=== PATIENT | male | born 1985 | race American Indian/Alaskan Native ===

== ENCOUNTER 2019-01-31 18:33 | Emergency (ER) | payer SELFPAY ==
--- NOTE | 2019-01-31 19:31 | Event Note ---
ED Screening Note Date of service: 01/31/19 Time: 19:27 ED Screening Note: This is a 33 y.o. M. that presents to the ER with RLE pain for several weeks. PMH morbidly obese, lymphedema to RLE No PCP Denies injury This initial assessment/diagnostic orders/clinical plan/treatment(s) is/are sub ject to change based on patients health status, clinical progression and re- assessment by fellow clinical providers in the ED. Further treatment and workup at subsequent clinical providers discretion. Patient/guardian urged not to elope from the ED as their condition may be serious if not clinically assessed and managed. Initial orders include:
[2019-01-31 20:58] LABS: Basophils % (Auto) 0.5 % (0.0-1.8); Eosinophils # (Auto) 0.3 K/mm3 (0.0-0.4); Eosinophils % (Auto) 3.1 % (0.0-4.3); Hematocrit 34.7 % (35.5-45.6); Hemoglobin 11.2 gm/dl (11.8-15.2); Lymphocytes % (Auto) 23.1 % (13.4-35.0); Mean Corpuscular HGB Conc 32 % (32-34); Mean Corpuscular Volume 73 fl (84-94); Monocytes # (Auto) 0.7 K/mm3 (0.0-0.8); Monocytes % (Auto) 8.3 % (0.0-7.3); Platelet Count 324 K/mm3 (140-440); Red Blood Count 4.74 M/mm3 (3.65-5.03); Red Cell Distribution Width 16.7 % (13.2-15.2)
[2019-01-31 21:08] LABS: INR 1.09 (0.87-1.13); Partial Thromboplastin Time 33.8 Sec. (24.2-36.6)
--- NOTE | 2019-01-31 21:22 | XRay Report ---
CHEST PA AND LATERAL VIEWS INDICATION: DYSPNEA. COMPARISON: None. FINDINGS: Support devices: None. Heart: Within normal limits. Lungs/Pleura: No acute pulmonary or pleural findings. IMPRESSION: 1. No significant abnormality. Signer Name: Matias Loyd MD Signed: 01/31/2019 9:18 PM Workstation Name: [id number]
[2019-01-31 21:24] LABS: Alanine Aminotransferase 12 units/L (7-56); Albumin 3.7 g/dL (3.9-5); BUN/Creatinine Ratio 9; Blood Urea Nitrogen 7 mg/dL (9-20); Hemolysis Index 2
[2019-01-31] MEDS ORDERED: LASIX PO ONE (23:35)
--- NOTE | 2019-02-01 00:26 | Emergency Department Report ---
ED Extremity Problem HPI - General Chief complaint: Extremity Injury, Lower Stated complaint: LEG PAIN Time Seen by Provider: 01/31/19 19:26 Source: patient Mode of arrival: Ambulatory Limitations: No Limitations - History of Present Illness Initial comments: Patient is a 33-year-old -[place] male with a history of chronic morbid obesity and chronic lower extremity lymphedema who presents to the ED with bilateral lower leg pain and worsening lymphedematous swelling on the right lower leg for the last 2 weeks. Patient denies shortness of breath, chest pain, traumatic injury, dizziness, lightheadedness, headache, abdominal pain, hematuria, dysuria, urinary frequency and urgency, dyspnea on exertion, fever, chills, traumatic injury, cough or change in vision. Patient states that he has not been evaluated by any medication physician for his chronic lymphedema. MD Complaint: extremity pain (bilateral lower leg pain and swelling; baseline chronic lymphedema), extremity swelling (Bilateral chronic baseline lower leg lymphedema) -: Gradual, week(s) (2) Location: bilateral lower extremity (lower leg) -: Yes myalgia, Yes arthralgia, No fever, No associated dyspnea, No associated chest pain Radiation: none Severity scale (0 -10): 3 Quality: aching, sharp, constant Consistency: constant Improves with: nothing, rest Worsens with: weight bearing, walking, palpation Associated Symptoms: denies other symptoms, arthralgias. denies: chest pain, shortness of breath, fever, myalgias, rash - Related Data Previous Rx's Medication Instructions Recorded Last Taken Type Furosemide [Lasix] 20 mg PO QDAY #30 tablet 02/01/19 Unknown Rx Naproxen [Naprosyn] 500 mg PO Q12H #20 tablet 02/01/19 Unknown Rx tiZANidine [Zanaflex 4mg TAB] 4 mg PO Q8H PRN #15 tablet 02/01/19 Unknown Rx traMADol [Ultram] 50 mg PO Q6HR PRN #15 tablet 02/01/19 Unknown Rx Allergies Allergy/AdvReac Type Severity Reaction Status Date / Time No Known Allergies Allergy Unverified 01/31/19 23:49 ED Review of Systems ROS: Stated complaint: LEG PAIN Other details as noted in HPI Constitutional: denies: chills, fever Eyes: denies: eye pain, eye discharge, vision change ENT: denies: ear pain, throat pain Respiratory: denies: cough, shortness of breath, wheezing Cardiovascular: denies: chest pain, palpitations Endocrine: no symptoms reported Gastrointestinal: denies: abdominal pain, nausea, diarrhea Genitourinary: denies: urgency, dysuria Musculoskeletal: arthralgia (chronic lower leg pain due to chronic lymphedema). denies: back pain, joint swelling Skin: denies: rash, lesions, change in color, change in hair/nails Neurological: denies: headache, weakness, paresthesias, abnormal gait Psychiatric: denies: anxiety, depression, auditory hallucinations, visual hallucinations, suicidal thoughts Hematological/Lymphatic: denies: easy bleeding, easy bruising ED Past Medical Hx - Past Medical History Previous Medical History?: Yes Additional medical history: Morbid Obesity, Lymphadema - Social History Smoking Status: Current Every Day Smoker Substance Use Type: Marijuana - Medications Home Medications: Home Medications Medication Instructions Recorded Confirmed Last Taken Type Furosemide [Lasix] 20 mg PO QDAY #30 tablet 02/01/19 Unknown Rx Naproxen [Naprosyn] 500 mg PO Q12H #20 tablet 02/01/19 Unknown Rx tiZANidine [Zanaflex 4mg TAB] 4 mg PO Q8H PRN #15 tablet 02/01/19 Unknown Rx traMADol [Ultram] 50 mg PO Q6HR PRN #15 tablet 02/01/19 Unknown Rx ED Physical Exam - General Limitations: No Limitations General appearance: alert, in no apparent distress, other (morbidly obese) - Head Head exam: Present: atraumatic, normocephalic, normal inspection - Eye Eye exam: Present: normal appearance, PERRL, EOMI. Absent: scleral icterus, c onjunctival injection, nystagmus, periorbital swelling, periorbital tenderness, other Pupils: Present: normal accommodation - ENT ENT exam: Present: normal exam, normal orophraynx, mucous membranes moist, TM's normal bilaterally, normal external ear exam - Neck Neck exam: Present: normal inspection, full ROM. Absent: tenderness, lymphadenopathy - Respiratory Respiratory exam: Present: normal lung sounds bilaterally. Absent: respiratory distress, wheezes, rales, rhonchi, chest wall tenderness, accessory muscle use, decreased breath sounds - Cardiovascular Cardiovascular Exam: Present: regular rate, normal rhythm, normal heart sounds. Absent: systolic murmur, diastolic murmur, rubs, gallop - GI/Abdominal GI/Abdominal exam: Present: soft, normal bowel sounds. Absent: distended, tenderness, guarding, rebound, hypoactive bowel sounds, organomegaly, mass - Rectal Rectal exam: Present: deferred - Extremities Exam Extremities exam: Present: normal inspection, full ROM, tenderness (Bilateral lower leg tenderness diffusely with chronic lymphedematous swelling), normal capillary refill, pedal edema (chronci baseline lymphedema), joint swelling (chronic lymphedematous lower legs). Absent: calf tenderness - Back Exam Back exam: Present: normal inspection, full ROM. Absent: tenderness, CVA tenderness (R), CVA tenderness (L), muscle spasm, paraspinal tenderness, vertebral tenderness - Neurological Exam Neurological exam: Present: alert, oriented X3, CN II-XII intact, normal gait, reflexes normal - Psychiatric Psychiatric exam: Present: normal affect, normal mood - Skin Skin exam: Present: warm, dry, intact, normal color. Absent: rash ED Course Vital Signs 01/31/19 02/01/19 19:27 00:57 Temperature 99.3 F Pulse Rate 91 H 65 Respiratory 18 18 Rate Blood Pressure 169/83 Blood Pressure 109/54 [Left] O2 Sat by Pulse 98 100 Oximetry - Reevaluation(s) Reevaluation #1: 02/01/19 00:27 This is a 33-year-old morbidly obese male with a history of chronic baseline bilateral lower extremity lymphedema present to the ED with worsening lower extremity pain due to worsening lymphedematous swelling. In the ED, patient is alert and oriented 3 and is not in distress with normal vital signs. Labs were drawn and reviewed. Patient was treated for pain in the ED and also started on Lasix oral tablets in the ED. lab test results were reviewed and are unremarkable including d-dimer level which was borderline normal and troponin and BNP which were normal. Chest x-ray shows no acute cardiopulmonary abnormalities. Patient has not had any shortness of breath or chest pain and was not tachycardic throughout. On reevaluation, patient's pain is well- controlled with medications and patient was educated on the importance of losing weight and patient verbalized understanding. Patient was discharged home and advised to follow-up with his primary care physician at [facility] for follow-up. Patient was advised to return to the ED immediately if symptoms get worse. ED Medical Decision Making - Lab Data Result diagrams: 01/31/19 20:34 01/31/19 20:34 - Radiology Data Radiology results: report reviewed, image reviewed Chest x-ray shows no acute cardiopulmonary abnormalities - Medical Decision Making This is a 33-year-old morbidly obese male with a history of chronic baseline bilateral lower extremity lymphedema present to the ED with worsening lower extremity pain due to worsening lymphedematous swelling. In the ED, patient is alert and oriented 3 and is not in distress with normal vital signs. Labs were drawn and reviewed. Patient was treated for pain in the ED and also started on Lasix oral tablets in the ED. lab test results were reviewed and are unremarkable including d-dimer level which was borderline normal and troponin and BNP which were normal. Chest x-ray shows no acute cardiopulmonary abnormalities. Patient has not had any shortness of breath or chest pain and was not tachycardic throughout. On reevaluation, patient's pain is well- controlled with medications and patient was educated on the importance of losing weight and patient verbalized understanding. Patient was discharged home and advised to follow-up with his primary care physician at [facility] for follow-up. Patient was advised to return to the ED immediately if symptoms get worse. - Differential Diagnosis chronic lymphedema; CHF; Cellulitis; DVT Critical care attestation.: If time is entered above; I have spent that time in minutes in the direct care of this critically ill patient, excluding procedure time. ED Disposition Clinical Impression: Lymphedema of both lower extremities, Chronic pain of lower extremity, bilateral Disposition: DC-01 TO HOME OR SELFCARE Is pt being admited?: No Does the pt Need Aspirin: No Condition: Stable Instructions: Chronic Pain (ED), Arthralgia (ED), Lymphedema (ED) Additional Instructions: Take medications with food, drink plenty of fluids and follow-up with your primary care physician is advised in 7-10 days for reevaluation. Return to the ED immediately if symptoms get worse. Consider weight loss options to help control your pain and swelling on the lower extremities. Prescriptions: Furosemide [Lasix] 20 mg PO QDAY #30 tablet Naproxen [Naprosyn] 500 mg PO Q12H #20 tablet traMADol [Ultram] 50 mg PO Q6HR PRN #15 tablet PRN Reason: Pain tiZANidine [Zanaflex 4mg TAB] 4 mg PO Q8H PRN #15 tablet PRN Reason: Spasms Time of Disposition: 00:33 Print Language: VINCENTIAN
[2019-02-01 00:58] VITALS: BP 109/54
== END 2019-02-01 00:57 | disposition home or self-care (01) ==
LOC: ED 18:33
DX: I89.0 Lymphedema, not elsewhere classified (principal); M79.604 Pain in right leg; F17.200 Nicotine dependence, unspecified, uncomplicated; F12.10 Cannabis abuse, uncomplicated; E66.01 Morbid (severe) obesity due to excess calories
CPT/HCPCS: 36415; 71046; 80053; 83880; 84484; 85025; 85379; 85610; 85730; 93005; 93010